=== PATIENT | male | born 1975 | race Caucasian/White ===

== ENCOUNTER 2017-10-31 15:21 | Emergency (ER) | payer OTHER ==
[~2017-10-31] VITALS: Ht 182.9 cm; Wt 117.9 kg
--- NOTE | 2017-10-31 15:30 | NUR ---
BBRA 41 FROM GROUP HOME: C/O CP IN GROUP HOME. NITRO X 1 ASA 325 GIVEN IN GROUP HOME WITH RELIEF. PT DENIES CP AT THIS TIME. NAD NOTED. VSS. SEEN BY MD FOR EVAL. [employer] OFFICERS REMAINS AT BS. SAFETY AND COMFORT MEASURES PROVIDED. WILL MONITOR.
[2017-10-31 15:58] LABS: BASOPHILS # (AUTO) 0.1 /CMM (0.0-0.2); BASOPHILS % (AUTO) 0.7 % (0.0-2.0); EOSINOPHILS % (AUTO) 0.6 % (0.0-6.0); HEMATOCRIT 47 % (39-51); HEMOGLOBIN 16.1 g/dL (13.5-17.5); LYMPHOCYTES # (AUTO) 2.9 /CMM (0.8-4.8); LYMPHOCYTES % (AUTO) 24.4 % (20.0-44.0); MEAN CORPUSCULAR HGB CONC 34 g/dl (31.0-36.0); MEAN CORPUSCULAR VOLUME 92 fL (80-96); MONOCYTES % (AUTO) 8.4 % (2.0-12.0); NEUTROPHILS # (AUTO) 7.9 /CMM (1.8-8.9); NEUTROPHILS % (AUTO) 65.9 % (43.0-81.0); PLATELET COUNT (AUTO) 268 /CMM (150-450); RDW COEFFICIENT OF VARIATION 13.1 (11.5-15.0); RED BLOOD CELL COUNT(AUTO) 5.18 MIL/uL (4.5-6.0)
--- NOTE | 2017-10-31 16:00 | NUR ---
IV ACCESS STARTED. BLOOD DRAWN FOR LABS.
[2017-10-31 16:09] LABS: CALCIUM, SERUM 9.5 mg/dL (8.5-10.1); CREATININE 0.8 mg/dL (0.6-1.3); POTASSIUM 3.2 mmol/L (3.5-5.1)
[2017-10-31 16:13] LABS: INR 0.95 (0.85-1.15)
[2017-10-31 16:15] LABS: ALBUMIN 4.2 g/dL (3.4-5.0); BILIRUBIN,DIRECT 0.2 mg/dL (0.0-0.2); BILIRUBIN,TOTAL 0.5 mg/dL (0.2-1.0); TOTAL PROTEIN, SERUM 7.9 g/dL (6.4-8.2)
[2017-10-31 16:17] LABS: TROPONIN I 0.033 ng/mL (0.00-0.056)
[2017-10-31 17:12] VITALS: BP 134/67
== END 2017-10-31 17:14 ==
LOC: ER 15:24
DX: R07.89 Other chest pain (principal); I10 Essential (primary) hypertension
CPT/HCPCS: 36415; 71045-TC; 80048-TC; 80076-TC; 84484-TC; 85025-TC; 85730-TC; A4606; Z7610